=== PATIENT | female | born 1940 | race Caucasian/White ===

== ENCOUNTER 2019-06-02 15:13 | Observation (INO) ==
[2019-06-02 15:47] LABS: Basophils # (auto) 0.09 K/uL (0-0.2); Basophils % (auto) 0.9 %; Eosinophils # (auto) 0.17 K/uL (0-0.5); Eosinophils % (auto) 1.7 %; Hematocrit (blood only) 43.5 % (37-47); Hemoglobin 14.9 g/dL (12.0-16.0); Immature Granulocytes # (auto) 0.03 K/uL (0.00-0.02); Immature Granulocytes % (auto) 0.3 %; Lymphocytes # (auto) 3.26 K/uL (1.2-3.4); Lymphocytes % (auto) 33.5 %; Mean Corpuscular Hgb Conc 34.3 g/dL (32-36); Mean Corpuscular Volume 85.8 fL (80-100); Mean Platelet Volume 9.2 fL (7.4-10.4); Monocytes # (auto) 1.02 K/uL (0.11-0.59); Monocytes % (auto) 10.5 %; Neutrophils # (auto) 5.15 K/uL (1.4-6.5); Neutrophils % (auto) 53.1 %; Platelet Count 308 K/uL (130-400); RDW Coefficient of Variation 14.2 % (11.5-14.5); RDW Standard Deviation 44.3 fL (36.4-46.3); Red Blood Count 5.07 M/uL (4.2-5.4); White Blood Count 9.72 K/uL (4.8-10.8)
[2019-06-02 15:56] LABS: Alanine Aminotransferase 26 U/L (12-78); Albumin Level 3.6 gm/dl (3.4-5.0); Aspartate Aminotransferase 21 U/L (15-37); BUN Creatinine Ratio 17.2 (10-20); Bilirubin Direct 0.1 mg/dl (0-0.2); Blood Urea Nitrogen 21 mg/dl (7-18); Calcium 9.2 mg/dl (8.5-10.1); Carbon Dioxide 27 mmol/L (21-32); Chloride 104 mmol/L (98-107); Creatinine Clr Calc Pharmacy 34.3 ml/min; Est GFR (African American) 46.7; Est GFR (Non-African American) 40.3; Glucose 143 mg/dl (70-99); Magnesium 2.3 mg/dl (1.8-2.4); Potassium 3.4 mmol/L (3.5-5.1); Sodium 140 mmol/L (136-145)
[2019-06-02 15:58] LABS: Partial Thromboplastin Ratio 0.9; Partial Thromboplastin Time 23.6 Seconds (21.0-31.0); Prothrombin Time 10.2 Seconds (9.0-12.0)
[2019-06-02 15:59] LABS: Alkaline Phosphatase 98 U/L (45-117); Bilirubin,Total 0.5 mg/dl (0.2-1); Creatine Kinase 108 U/L (26-192); Troponin I < 0.015 ng/ml (0-0.045)
[2019-06-02 16:02] LABS: HCO3 VBG 27 mmol/L; Oxygen Saturation VBG < 60.0 %; PCO2 VBG 45 mmHg (38-50); PO2 VBG 29 mmHg
[2019-06-02] MEDS: SODIUM CHLORIDE 0.9% 500 ML IV SCH ×2 (16:23→21:24)
--- NOTE | 2019-06-02 16:25 | XRay Report ---
XR chest 1V portable CLINICAL HISTORY: sob is dyspnea COMPARISON STUDY: No previous studies for comparison. FINDINGS: The bones soft tissues and hemidiaphragms are normal. The cardiomediastinal silhouette is n ormal. The lungs are clear. The pulmonary vasculature is normal. IMPRESSION: Negative chest. The above report was generated using voice recognition software. It may contain grammatical, syntax or spelling errors. Electronically signed by: Mike Briggs M.D. 06/02/2019 4:23 PM
[2019-06-02] MEDS ORDERED: OPTIRAY 320 125ml IV PRN ×2 (16:47→22:22)
--- NOTE | 2019-06-02 16:59 | CT Scan Report ---
CT angio chest PE protocol CT DOSE: 480.44 mGy.cm HISTORY: Dyspnea ro pe TECHNIQUE: Multiaxial CT images of the chest were performed following the intravenous administration of contrast to evaluate the pulmonary arteries. Maximal intensity projection images were also obtaine d. A dose lowering technique was utilized adhering to the principles of ALARA. COMPARISON STUDY: None. FINDINGS: Thoracic aorta is normal in course and caliber. Pulmonary vasculature enhances appropriatel y. There are no filling defects. Subtle interstitial infiltrative change throughout both hemithoraces. Limited evaluation of the upper abdomen is unremarkable. IMPRESSION: 1. No evidence of pulmonary embolus. 2. Interstitial prominence throughout both hemithoraces suggesting a nonspecific inflammatory process versus early interstitial edema. The above report was generated using voice recognition software. It may contain grammatical, syntax or spelling errors. Electronically signed by: Mike Briggs M.D. 06/02/2019 4:57 PM
--- NOTE | 2019-06-02 17:04 | CT Scan Report ---
CT abd pelvis IV con only CT DOSE: HISTORY: Pain. Flank pain. llq pain TECHNIQUE: Multiaxial CT images of the abdomen and pelvis were performed following the use of intrave nous contrast. A dose lowering technique was utilized adhering to the principles of ALARA. COMPARISON STUDY: None. FINDINGS: Minimal interstitial changes both lung bases. Mild fatty replacement of the liver. The kidn eys enhance uniformly. Spleen contains several calcified granulomas. Bowel pattern is notable for hyperemia of several loops of small bowel consistent with enteritis. The colonic pattern shows no acute process. Scattered colonic diverticuli are present. There is no evide nce for acute diverticulitis. The appendix is normal. IMPRESSION: 1. Small bowel enteritis. 2. Mild fatty replacement of the liver. 3. Otherwise negative study. The above report was generated using voice recognition software. It may contain grammatical, syntax or spelling errors. Electronically signed by: Mike Briggs M.D. 06/02/2019 5:03 PM
--- NOTE | 2019-06-02 18:04 | History & Physical Report ---
Date of Service June 02, 2019 Assessment & Plan (1) Near syncope: Observation with telemetry. IV fluids. Cardiac echo. Head and neck CTA Present on Admission?: Yes (2) Hypokalemia: IV replacement. Repeat lab tomorrow Present on Admission?: Yes (3) Orthostatic hypotension: Suspected orthostasis from volume depletion. Administer IV fluids. Monitor orthostatic blood pressures (4) DVT prophylaxis: History of Present Illness Chief Complaint: Passing out Primary Care Provider: NO PCP 79-year-old female in remarkably good health who does not take any prescription medications. She is from [place] but was in this region walking in a field with many other people's for most of the day when she became lightheaded and weak and had a near syncopal episode. She denies noticing any shortness of breath, chest pain, palpitations. At the time of my examination she is alert and oriented plaint. Her oxygen saturation on room air is 88% but she is a non-smoker with clear chest x-ray and no signs of PE on chest CTA. This may be a spurious result. She does not feel short of breath. She is only mildly hypokalemic which will be corrected. She is placed on observation for further assessment. Allergies Allergy/AdvReac Type Severity Reaction Status Date / Time Barbiturates Allergy Severe PASSED OUT Verified 06/02/19 16:06 ONIONS Allergy Severe BLISTERS Uncoded 06/02/19 16:08 IN THROAT Home Medications Home Medications Medication Instructions Recorded Confirmed Type acetaminophen [Tylenol Extra 1,000 mg PO QID PRN 06/02/19 06/02/19 History Strength] multivitamin 1 tab PO DAILY 06/02/19 06/02/19 History Past Med/Surg History Medical History Orthostatic hypotension (Acute) Hypokalemia (Acute) Near syncope (Acute) Social History Feels Safe at Home: Yes Smoking Status: Never smoker Review of Systems Review of Systems: Constitutional-no fever or chills ENT-no blurred vision, no double vision, no epistaxis, no sore throat Respiratory-no cough, no wheezing, no shortness of breath Cardiac-no palpitations, no chest pain, no syncope GI-no nausea, vomiting, diarrhea, melena, hematochezia -no urinary retention, no urinary incontinence, no dysuria, no hematuria Musculoskeletal-no joint pain, no muscle tenderness Skin-no bruising, no rashes, no pruritus Neuro-weakness and lightheadedness today followed by near syncopal episode Psych-no depression, no anxiety Physical Exam Physical Exam: General-alert and oriented x3, no fevers, no chills HEENT-head atraumatic and normocephalic, TMs intact bilaterally, pupils equal and reactive to light, extraocular muscles intact Neck-no lymphadenopathy or thyromegaly, trachea midline. No carotid bruits Chest-clear to auscultation percussion. No rales wheezing or rhonchi Cardiac-regular rate and rhythm, normal S1 and S2, no JVD Abdomen-normal bowel sounds, nontender, no hepatosplenomegaly Extremities-no cyanosis, clubbing, or edema Neuro-cranial nerves II through XII intact, motor and sensory function within normal limits, strength symmetrical , no focal deficits Psych-normal affect, normal mood Results & Data Vital Signs (Past 12 Hours) Vital Signs Temp Pulse Pulse Resp BP BP Pulse Ox 06/02/19 17:14 87 14 131/67 97 06/02/19 15:24 37.1 C 91 H 18 118/64 88 L Laboratory Results 06/02/19 15:20 06/02/19 15:20 PG Care Time/CCT Total # of Minutes Spent Total Time Spent with Patient: Total time spent is greater than 50% in coordination of care (as documented) at patient's floor/unit and/or counseling patient:
[2019-06-02 18:22] LABS: Appearance Urine Clear (Clear); Bacteria Urine Automated Negative (Negative); Bilirubin Urine Negative (Negative); Blood Urine Trace (Negative); Color Urine Yellow; Glucose Urine UA Negative (Negative); Ketones Urine Negative (Negative); Leukocyte Esterase Urine Negative (Negative); Nitrite Urine Negative (Negative); Protein Urine Negative (Negative); RBC Urine Automated 0-4 /hpf (0-4); Specific Gravity Urine 1.043 (1.000-1.030); Urobilinogen Urine Negative (Negative); pH Urine 7.5 (4.5-7.5)
[2019-06-02 18:51] LABS: Lyme Ab IgG w/WB Rflx Negative (Negative); Lyme Ab IgM w/WB Rflx Negative (Negative)
[2019-06-02] MEDS ORDERED: ALUMINUM/MAGNESIUM SUSP 30 ML UDC PO PRN (19:28)
[2019-06-02] MEDS ORDERED: ONDANSETRON INJ 2 MG/ML 2 ML VIAL IV PRN (19:28)
[2019-06-02] MEDS ORDERED: ACETAMINOPHEN 500 MG TAB PO PRN (19:28)
--- NOTE | 2019-06-02 20:33 | Emergency Department Note ---
Entered by Radha Fry acting as a scribe for Jesus Monterroso History of Present Illness General Chief complaint: Syncope (Near Syncope) Stated complaint: WEAKNESS, HEADACHE, DIZZINESS Time Seen by Provider: 06/02/19 15:30 Source: patient and friends Limitations: no limitations History of Present Illness Provider complaint: Syncope Onset (ago): hour(s) Location: head Maximum Pain Intensity: 5 Associated symptoms: + denies other symptoms (-blood in urine, -blood in stool, -hemoptysis, - leg pain), + cough (+dry), + nausea/vomiting (+nausea no vomiting ) and + other (+abdominal pain, +disoriented ); no chest pain and no shortness of breath Treatments prior to arrival: none The patient is an 79 year old female who presents to the Emergency Room with complaints of syncope that occurred just prior to arrival while the [place] The patient states that she was hiking intermittently over an 8 hour period today. The patient states that while she was hiking that she began to feel disoriented and states that she thought she was going to pass out. The patient states that the people around her helped her get safely to the [place] round so that she did not hit her head or fall to the ground. Per friend, the patient did lose consciousness for fleeting moments several different times. The patient states that she has nausea, abdominal pain, and a dry cough. The patient denies chest pain, shortness of breath, blood in urine, blood in stool, vomiting, hemoptysis, or leg pain. The patient states that she has a history of hypercholesterolemia but states that she does not take medications to control it. The patient states that she has a history of liver problems due to medications. The patient denies a history of heart disease, diabetes, or hypertension. The patient denies a history of any hysterectomy, , appendectomy, or cholecystectomy. Home Medications Home Medications Medication Instructions Recorded Confirmed Type acetaminophen [Tylenol Extra 1,000 mg PO QID PRN 06/02/19 06/02/19 History Strength] multivitamin 1 tab PO DAILY 06/02/19 06/02/19 History Allergies Allergy/AdvReac Type Severity Reaction Status Date / Time Barbiturates Allergy Severe BLISTERS Verified 06/02/19 20:24 IN THROAT onion Allergy Intermediate Unknown Verified 06/02/19 20:23 Past Med/Surg History Medical History Orthostatic hypotension (Acute) Hypokalemia (Acute) Near syncope (Acute) Hypercholesteremia No significant family history No significant past surgical history Social History Feels Safe at Home: Yes Smoking Status: Never smoker Review of Systems See HPI for pertinent positives & negatives. and A total of 10 systems reviewed and were otherwise negative Physical Exam Vital Signs Vital Signs - 24 hr 06/02/19 15:24 06/02/19 17:14 Temperature 37.1 C Temperature Source Oral Sepsis Recent Fever Within 48 Hours No Sepsis New/Unexplained Change in Mental Status No Sepsis Action Taken by Nursing No Action Required Pulse Rate 91 H Pulse Rate [Right Finger] 87 Pulse Rhythm Regular Pulse Rhythm [Right Finger] Regular Pulse Strength Normal Pulse Strength [Right Finger] Normal Respiratory Rate 18 14 Respiratory Effort / Characteristics Non-Labored Non-Labored Respiratory Depth Normal Normal Respiratory Pattern Regular Regular Blood Pressure 118/64 Blood Pressure [Right Arm] 131/67 Blood Pressure Mean 82 Blood Pressure Mean [Right Arm] 88 Blood Pressure Position Sitting Pulse Oximetry 88 L 97 Oxygen Delivery Method Room Air Nasal Cannula Oxygen Flow Rate 2 GENERAL: She is oriented to person, place, and time. She appears well-developed and well-nourished. She does not appear distressed. HENT: Exam performed. -Head: Normocephalic and atraumatic. -Right Ear: External ear normal. No mastoid tenderness. - Left Ear: External ear normal. No mastoid tenderness. -Mouth/Throat: The oropharynx is clear and moist. No trismus in the jaw. No dental abscesses or uvula swelling. No oropharyngeal exudate or tonsillar abscesses. EYES: Conjunctivae and EOM are normal. Pupils are equal, round, and reactive to light. Right eye exhibits no discharge. Left eye exhibits no discharge. No scleral icterus. NECK: Normal range of motion. Neck supple. No JVD present. No spinous process tenderness present. No carotid bruit present. No rigidity. No tracheal deviation and normal range of motion present. No Brudzinski's sign and no Kernig's sign noted. CV: Normal rate, regular rhythm, normal heart sounds and intact distal pulses. There is no peripheral edema. Palpable radial pulses bue. PULM/CHEST: Effort normal and breath sounds normal. No respiratory distress. No stridor. She has no wheezes. She has no rales. Chest Wall: She exhibits no tenderness. ABD: The abdomen is soft. Bowel sounds are normal. She has no distension. No mass is present. There is tenderness with palpitation to the LLQ. There is no rebound, no guarding, no Vee's sign and no tenderness at McBurney's point. Rovsig negative MUSC/SKEL: Normal range of motion. There is no peripheral edema, tenderness or deformity. LYMPH: No cervical adenopathy. NEURO: She is alert and oriented to person, place, and time. She has normal str ength. No cranial nerve deficit or sensory deficit. Coordination and gait normal. GCS eye subscore is 4. GCS verbal subscore is 5. GCS motor subscore is 6. cerbellar tests wnl. SKIN: Skin is warm and dry. She is not diaphoretic. PSYCH: She has a normal mood and affect. Her behavior is normal. Judgment and thought content normal. Course 1531: The patient was evaluated in room C10, and a complete history and physical examination were performed. 1640: I checked on and updated the patient on their results. The patient's vital signs are stable on supplemental oxygen. The patient's labs and imaging are both within normal limits. The patient's CT was negative. The patient reported that she has been around ticks and states that she would like to be tested, so blood work is being sent out to test for Anaplasmosis. I discussed with the patient that it is not likely that Anaplasmosis would be causing her hypoxia. Patient will be admitted for further work-up of her hypoxia. 1724: [facility]. Consultations Consultation #1: Dr. Garvin [facility] Time: 17:24 Administered Medications Sodium Chloride (Nss) 500 mls @ 125 mls/hr IV .Q4H ZULAY Stop: 07/02/19 15:44 Last Admin: 06/02/19 16:23 Dose: 125 mls/hr Documented by: [id number] Ioversol (Optiray 320 125ml) 121 ml IV ONCE PRN PRN Reason: Interaction Checking Stop: 06/06/19 16:46 Last Admin: 06/02/19 16:50 Dose: 121 ml Documented by: [id number] Medical Decision Making Differential Diagnosis Differential diagnosis includes: Medical Records Attestation: I reviewed the patient's medical records. Home Medications Current Medication List: was personally reviewed by me Laboratory Data Attestation: I reviewed the patient's lab results. Result diagrams: 06/02/19 15:20 06/02/19 15:20 Lab Results 06/02/19 06/02/19 06/02/19 Range/Units 15:20 15:20 15:20 WBC 9.72 (4.8-10.8) K/uL RBC 5.07 (4.2-5.4) M/uL Hgb 14.9 (12.0-16.0) g/dL Hct 43.5 (37-47) % MCV 85.8 (80-100) fL MCH 29.4 (25-34) pg MCHC 34.3 (32-36) g/dL RDW Std Deviation 44.3 (36.4-46.3) fL RDW Coeff of Valerio 14.2 (11.5-14.5) % Plt Count 308 (130-400) K/uL MPV 9.2 (7.4-10.4) fL Immature Gran % (Auto) 0.3 % Neut % (Auto) 53.1 % Lymph % (Auto) 33.5 % [place] % (Auto) 10.5 % Eos % (Auto) 1.7 % Baso % (Auto) 0.9 % Immature Gran # (Auto) 0.03 H (0.00-0.02) K/uL Neut # (Auto) 5.15 (1.4-6.5) K/uL Lymph # (Auto) 3.26 (1.2-3.4) K/uL [place] # (Auto) 1.02 H (0.11-0.59) K/uL Eos # (Auto) 0.17 (0-0.5) K/uL Baso # (Auto) 0.09 (0-0.2) K/uL PT 10.2 (9.0-12.0) Seconds INR 1.0 (0.9-1.1) APTT 23.6 (21.0-31.0) Seconds PTT Ratio 0.9 VBG pH (7.36-7.41) VBG pCO2 (38-50) mmHg VBG pO2 mmHg VBG HCO3 mmol/L VBG O2 Saturation % VBG Base Excess mEq/L Barometric Pressure mm/Hg Sodium 140 (136-145) mmol/L Potassium 3.4 L (3.5-5.1) mmol/L Chloride 104 (98-107) mmol/L Carbon Dioxide 27 (21-32) mmol/L Anion Gap 9.0 (3-11) BUN 21 H (7-18) mg/dl Creatinine 1.25 H (0.6-1.2) mg/dl Est Cr Clr Drug Dosing 34.3 ml/min Est GFR ( Amer) 46.7 Est GFR (Non-Af Amer) 40.3 BUN/Creatinine Ratio 17.2 (10-20) Glucose 143 H (70-99) mg/dl Calcium 9.2 (8.5-10.1) mg/dl Magnesium 2.3 (1.8-2.4) mg/dl Total Bilirubin 0.5 (0.2-1) mg/dl Direct Bilirubin 0.1 (0-0.2) mg/dl AST 21 (15-37) U/L ALT 26 (12-78) U/L Alkaline Phosphatase 98 (45-117) U/L Total Creatine Kinase 108 (26-192) U/L Troponin I < 0.015 (0-0.045) ng/ml Total Protein 8.0 (6.4-8.2) gm/dl Albumin 3.6 (3.4-5.0) gm/dl Lipase 121 (73-393) U/L Urine Color Urine Appearance (Clear) Urine pH (4.5-7.5) Ur Specific [place] (1.000-1.030) Urine Protein (Negative) Urine Glucose (UA) (Negative) Urine Ketones (Negative) Urine Blood (Negative) Urine Nitrite (Negative) Urine Bilirubin (Negative) Urine Urobilinogen (Negative) Ur Leukocyte Esterase (Negative) Urine WBC (Auto) (0-5) /hpf Urine RBC (Auto) (0-4) /hpf U Hyaline Cast (Auto) (0-5) /lpf U Epithel Cells (Auto) (0-5) /lpf Urine Bacteria (Auto) (Negative) Lyme Disease IgG Ab (Negative) Lyme Disease IgM Ab (Negative) 06/02/19 06/02/19 06/02/19 Range/Units 15:20 15:50 18:02 WBC (4.8-10.8) K/uL RBC (4.2-5.4) M/uL Hgb (12.0-16.0) g/dL Hct (37-47) % MCV (80-100) fL MCH (25-34) pg MCHC (32-36) g/dL RDW Std Deviation (36.4-46.3) fL RDW Coeff of Valerio (11.5-14.5) % Plt Count (130-400) K/uL MPV (7.4-10.4) fL Immature Gran % (Auto) % Neut % (Auto) % Lymph % (Auto) % [place] % (Auto) % Eos % (Auto) % Baso % (Auto) % Immature Gran # (Auto) (0.00-0.02) K/uL Neut # (Auto) (1.4-6.5) K/uL Lymph # (Auto) (1.2-3.4) K/uL [place] # (Auto) (0.11-0.59) K/uL Eos # (Auto) (0-0.5) K/uL Baso # (Auto) (0-0.2) K/uL PT (9.0-12.0) Seconds INR (0.9-1.1) APTT (21.0-31.0) Seconds PTT Ratio VBG pH 7.40 (7.36-7.41) VBG pCO2 45 (38-50) mmHg VBG pO2 29 mmHg VBG HCO3 27 mmol/L VBG O2 Saturation < 60.0 % VBG Base Excess 2.0 mEq/L Barometric Pressure 732.0 mm/Hg Sodium (136-145) mmol/L Potassium (3.5-5.1) mmol/L Chloride (98-107) mmol/L Carbon Dioxide (21-32) mmol/L Anion Gap (3-11) BUN (7-18) mg/dl Creatinine (0.6-1.2) mg/dl Est Cr Clr Drug Dosing ml/min Est GFR ( Amer) Est GFR (Non-Af Amer) BUN/Creatinine Ratio (10-20) Glucose (70-99) mg/dl Calcium (8.5-10.1) mg/dl Magnesium (1.8-2.4) mg/dl Total Bilirubin (0.2-1) mg/dl Direct Bilirubin (0-0.2) mg/dl AST (15-37) U/L ALT (12-78) U/L Alkaline Phosphatase (45-117) U/L Total Creatine Kinase (26-192) U/L Troponin I (0-0.045) ng/ml Total Protein (6.4-8.2) gm/dl Albumin (3.4-5.0) gm/dl Lipase (73-393) U/L Urine Color Yellow Urine Appearance Clear (Clear) Urine pH 7.5 (4.5-7.5) Ur Specific [place] 1.043 H (1.000-1.030) Urine Protein Negative (Negative) Urine Glucose (UA) Negative (Negative) Urine Ketones Negative (Negative) Urine Blood Trace H (Negative) Urine Nitrite Negative (Negative) Urine Bilirubin Negative (Negative) Urine Urobilinogen Negative (Negative) Ur Leukocyte Esterase Negative (Negative) Urine WBC (Auto) 1-5 (0-5) /hpf Urine RBC (Auto) 0-4 (0-4) /hpf U Hyaline Cast (Auto) 1-5 (0-5) /lpf U Epithel Cells (Auto) 10-20 H (0-5) /lpf Urine Bacteria (Auto) Negative (Negative) Lyme Disease IgG Ab Negative (Negative) Lyme Disease IgM Ab Negative (Negative) Imaging Data Radiologist's Impression: Radiology results as stated below per my review and the radiologist's interpretation: CT abd pelvis IV con only CT DOSE: HISTORY: Pain. Flank pain. llq pain TECHNIQUE: Multiaxial CT images of the abdomen and pelvis were performed following the use of intravenous contrast. A dose lowering technique was utilized adhering to the principles of ALARA. COMPARISON STUDY: None. FINDINGS: Minimal interstitial changes both lung bases. Mild fatty replacement of the liver. The kidneys enhance uniformly. Spleen contains several calcified granulomas. Bowel pattern is notable for hyperemia of several loops of small bowel consistent with enteritis. The colonic pattern shows no acute process. Scattered colonic diverticuli are present. There is no evidence for acute diverticulitis. The appendix is normal. IMPRESSION: 1. Small bowel enteritis. 2. Mild fatty replacement of the liver. 3. Otherwise negative study. The above report was generated using voice recognition software. It may contain grammatical, syntax or spelling errors. Electronically signed by: Mike Briggs M.D. 06/02/2019 5:[address] angio chest PE protocol CT DOSE: 480.44 mGy.cm HISTORY: Dyspnea ro pe TECHNIQUE: Multiaxial CT images of the chest were performed following the intravenous administration of contrast to evaluate the pulmonary arteries. Maximal intensity projection images were also obtained. A dose lowering technique was utilized adhering to the principles of ALARA. COMPARISON STUDY: None. FINDINGS: Thoracic aorta is normal in course and caliber. Pulmonary vasculature enhances appropriately. There are no filling defects. Subtle interstitial infiltrative change throughout both hemithoraces. Limited evaluation of the upper abdomen is unremarkable. IMPRESSION: 1. No evidence of pulmonary embolus. 2. Interstitial prominence throughout both hemithoraces suggesting a nonspecific inflammatory process versus early interstitial edema. The above report was generated using voice recognition software. It may contain grammatical, syntax or spelling errors. Electronically signed by: Mike Briggs M.D. 06/02/2019 4:57 PM XR chest 1V portable CLINICAL HISTORY: sob is dyspnea COMPARISON STUDY: No previous studies for comparison. FINDINGS: The bones soft tissues and hemidiaphragms are normal. The cardiomediastinal silhouette is normal. The lungs are clear. The pulmonary vasculature is normal. IMPRESSION: Negative chest. The above report was generated using voice recognition software. It may contain grammatical, syntax or spelling errors. Electronically signed by: Mike Briggs M.D. 06/02/2019 4:23 PM ECG Data Attestation: I personally reviewed and interpreted this ECG as follows: Indication: syncope Rate (beats per minute): 90 Rhythm: sinus rhythm Findings: + other (+QRS, NC, and QTC intervals within normal limits); no ST depression and no ST elevation Blood Pressure Blood Pressure Findings: Elevated blood pressure Blood Pressure Disposition: did not require urgent referral MDM Narrative 1531: The patient was evaluated in room C10, and a complete history and physical examination were performed. 1640: I checked on and updated the patient on their results. The patient's vital signs are stable on supplemental oxygen. The patient's labs and imaging are both within normal limits. The patient's CT was negative. The patient reported that she has been around ticks and states that she would like to be tested, so blood work is being sent out to test for Anaplasmosis. I discussed with the patient that it is not likely that Anaplasmosis would be causing her hypoxia. Patient will be admitted for further work-up of her hypoxia. 1724: I discussed the patient's case with Dr. Rendon- [facility] who will admit the patient to hospital services. Impression & Plan Hypoxia, Syncope Critical Care Time Critical Care Time: Yes Total Critical Care Time: 51 I have personally spent 51 minutes of critical care time in the direct management of this patient. This includes bedside care, interpretation of diagnostic studies, and testing, discussion with consultants, patient, and family members, and other required patient management activities. This 51 minutes is in excess of all separately billable procedures. Discharge Plan Visit Data *Final* Discharge Date/Time: 06/02/19 19:10 Chief Complaint: Syncope (Near Syncope) Stated Complaint: WEAKNESS, HEADACHE, DIZZINESS ED Provider: Jesus Monterroso Discharge Problem: Hypoxia, Syncope Patient Disposition: Admitted As Inpatient Discharge Instructions Interventions: ED Discharge Assessment Last Done: 06/02/19 19:10 Discharge Problem: Syncope Qualifiers: Syncope type: unspecified Qualified Code(s): R55 - Syncope and collapse The scribe's documentation has been prepared under my direction and personally reviewed by me in its entirety. I confirm that the note above accurately reflects all work, treatment, procedures, and medical decision making performed by me.
[2019-06-02] MEDS ORDERED: ENOXAPARIN INJ 40 MG/0.4 ML SYR SQ SCH (21:00)
[2019-06-02] MEDS: NSS + 20MEQ KCL 20 MEQ/1,000 ML BAG IV SCH (21:23)
--- NOTE | 2019-06-02 22:30 | CT Scan Report ---
CT angio neck with con HISTORY: Mental status change Near syncope TECHNIQUE: Multiaxial CT angiography of the neck was performed IV contrast: None. All measurements w ere calculated based on NASCET criteria. Maximum intensity projection images were also obtained. A dose lowering technique was utilized adhering to the principles of ALARA. COMPARISON STUDY: None. FINDINGS: The aortic arch and proximal great vessels are widely patent. There is no significant sten osis, occlusion, or dissection identified within the bilateral common carotid, internal carotid, or v ertebral arteries. IMPRESSION: No significant stenosis, occlusion, or dissection identified within the carotid or vertebral arteries . Minimal scattered plaque formation The above report was generated using voice recognition software. It may contain grammatical, syntax or spelling errors. Electronically signed by: Mike Briggs M.D. 06/02/2019 10:28 PM
--- NOTE | 2019-06-02 22:32 | CT Scan Report ---
CT angio head wo/w HISTORY: Mental status change Syncope TECHNIQUE: Multiaxial CT angiography of the head was performed IV contrast: None. Maximum intensit y projection images were also obtained. A dose lowering technique was utilized adhering to the princ iplСергей. COMPARISON: None. FINDINGS: There is no mass, hematoma, midline shift, or acute infarct. Visualized intracranial digital marketing intern al carotid arteries, distal vertebral arteries, and basilar artery are widely patent. There is no sig nificant stenosis, occlusion, or aneurysm seen within the bilateral ACAs, MCAs, or crew caller. IMPRESSION: No significant stenosis, occlusion, or aneurysm within the pal[place] of [place]. The above report was generated using voice recognition software. It may contain grammatical, syntax or spelling errors. Electronically signed by: Mike Briggs M.D. 06/02/2019 10:31 PM
[2019-06-03 07:03] LABS: Basophils # (auto) 0.07 K/uL (0-0.2); Basophils % (auto) 0.7 %; Eosinophils # (auto) 0.34 K/uL (0-0.5); Eosinophils % (auto) 3.4 %; Hematocrit (blood only) 39.7 % (37-47); Hemoglobin 13.2 g/dL (12.0-16.0); Immature Granulocytes # (auto) 0.02 K/uL (0.00-0.02); Immature Granulocytes % (auto) 0.2 %; Lymphocytes # (auto) 2.29 K/uL (1.2-3.4); Lymphocytes % (auto) 22.7 %; Mean Corpuscular Hgb Conc 33.2 g/dL (32-36); Mean Corpuscular Volume 86.7 fL (80-100); Mean Platelet Volume 8.9 fL (7.4-10.4); Monocytes # (auto) 1.13 K/uL (0.11-0.59); Monocytes % (auto) 11.2 %; Neutrophils # (auto) 6.22 K/uL (1.4-6.5); Neutrophils % (auto) 61.8 %; Platelet Count 281 K/uL (130-400); RDW Coefficient of Variation 14.3 % (11.5-14.5); RDW Standard Deviation 44.9 fL (36.4-46.3); Red Blood Count 4.58 M/uL (4.2-5.4); White Blood Count 10.07 K/uL (4.8-10.8)
[2019-06-03 07:31] LABS: BUN Creatinine Ratio 18.1 (10-20); Calcium 8.3 mg/dl (8.5-10.1); Creatinine Clr Calc Pharmacy 54.4 ml/min; Est GFR (African American) 85.3; Est GFR (Non-African American) 73.6; Potassium 3.7 mmol/L (3.5-5.1)
[2019-06-03] MEDS ORDERED: MULTIVITAMIN TAB PO SCH (09:00)
[2019-06-03] MEDS: NSS + 20MEQ KCL 20 MEQ/1,000 ML BAG IV SCH (09:58)
--- NOTE | 2019-06-03 14:23 | Discharge Summary ---
Date of Service June 03, 2019 Admission HPI Per Admitting Provider 79-year-old female in remarkably good health who does not take any prescription medications. She is from [place] but was in this region walking in a field with many other people's for most of the day when she became lightheaded and weak and had a near syncopal episode. She denies noticing any shortness of breath, chest pain, palpitations. At the time of my examination she is alert and oriented plaint. Her oxygen saturation on room air is 88% but she is a non-smoker with clear chest x-ray and no signs of PE on chest CTA. This may be a spurious result. She does not feel short of breath. She is only mildly hypokalemic which will be corrected. She is placed on observation for further assessment. Principal Diagnosis pre syncope Discharge Exam Constitutional well developed and average body habitus Eyes no conjunctival abnormality and no scleral abnormality Neck normal visual inspection and trachea midline Respiratory normal respiratory effort; no respiratory distress Auscultation: lungs clear to auscultation bilaterally Cardiovascular RRR, no murmur, no edema Gastrointestinal (Abdomen) normal bowel sounds, soft, nontender, no hepatosplenomegaly Musculoskeletal no cyanosis or clubbing, extremities motor strength 5/5 Discharge Data Allergies Allergy/AdvReac Type Severity Reaction Status Date / Time Barbiturates Allergy Severe BLISTERS Verified 06/02/19 20:24 IN THROAT onion Allergy Intermediate Unknown Verified 06/02/19 20:23 Consultations 06/02/19 17:25 ED Decision to Admit Stat Ordered Studies 06/02/19 15:39 CT abd pelvis IV con only Stat CT angio chest PE protocol Stat 06/02/19 19:28 CT angio neck with con Routine 06/02/19 20:11 CT angio head wo/w Routine Hospital Course (1) Near syncope: Has had negative CT abdomen pelvis, CT of chest and negative head and neck CTA. She has no significant symptoms she is no significant abnormal cardiac examination and she is interested in returning to home. She will be released that she is able to ambulate in the unit without difficulty Lyme serology is pending at time of discharge (2) Hypokalemia: Replete (3) Orthostatic hypotension: Suspected orthostasis from volume depletion. Replete (4) DVT prophylaxis: Total Time Total Time Spent Total Time Spent (In Minutes): greater than 30 minutes were required to prepare discharge Discharge Plan Discharge Items Patient Disposition: Home - Self-Care Reason For Visit: NEAR SYNCOPE Discharge Diagnosis: almost passing out Discharge Goals: Decrease discomfort and Diagnostic testing Activity: Resume your previous activity Non-emergency contact: Primary Care Provider Call non-emergency contact if: you have any medication questions Follow-up/Referrals: PCP,NO [Primary Care Provider] - Diet: Regular Addtl Provider Instructions: please drink plenty of liquids, please follow up with your family doctor Prescriptions: Continued multivitamin Tablet 1 tab PO DAILY RF: 0 acetaminophen [Tylenol Extra Strength] 500 mg Tablet 1,000 mg PO QID PRN (Reason: Pain) RF: 0 Stand-Alone Forms: [facility] Discharge Orders: Discharge Order (Routine); Ordered 06/03/19 Ordered By: Erasto Bonilla Admission Data Admit Date/Time: 06/02/19 18:03 Attending Provider: Erasto Bonilla Admit Provider: Isaías Rendon Primary Care Provider: PCP,NO Other Providers: Isaías Rendon Service: Telemetry Medical Other Interventions: Discharge Summary Assessment (RN) Last Done: 06/03/19 10:12 DC Date/Time DO NOT enter until pt leaves facility: 06/03/19 10:55
[2019-06-08 19:11] LABS: Anaplasma phagocytophila IgM <1:20 (<1:20)
[2019-06-09 00:38] LABS: 18KDIGG Band NONREACTIVE (NONREACTIVE); 23KDIGG Band NONREACTIVE (NONREACTIVE); 23KDIGM Band NONREACTIVE (NONREACTIVE); 28KDIGG Band NONREACTIVE (NONREACTIVE); 30KDIGG Band NONREACTIVE (NONREACTIVE); 39KDIGG Band NONREACTIVE (NONREACTIVE); 39KDIGM Band NONREACTIVE (NONREACTIVE); 41KDIGG Band REACTIVE (NONREACTIVE); 41KDIGM Band NONREACTIVE (NONREACTIVE); 45KDIGG Band NONREACTIVE (NONREACTIVE); 58KDIGG Band NONREACTIVE (NONREACTIVE); 66KDIGG Band REACTIVE (NONREACTIVE); 93KDIGG Band NONREACTIVE (NONREACTIVE); Lyme Antibodies, WB IgG NEGATIVE (NEGATIVE); Lyme Antibodies, WB IgM NEGATIVE (NEGATIVE)
== END 2019-06-03 10:55 | disposition home or self-care (01) ==
LOC: ED 15:13 → 2N 15:13 → SUATTDRO 18:03 → 2N 19:10